=== PATIENT | female | born 1975 | race African-American/Black ===

== ENCOUNTER 2016-12-03 12:30 | Inpatient (IN) | payer BC ==
[2016-12-03 13:43] VITALS: BMI 27.8
--- NOTE | 2016-12-03 16:40 | HP ---
Admission ROS [facility] - [facility] Chief Complaint: I WANT TO GO TO REHAB Allergies/Adverse Reactions: Allergies Allergy/AdvReac Type Severity Reaction Status Date / Time No Known Allergies Allergy Verified 12/03/16 16:38 History of Present Illness: 41 YEARS OLD FEMALE WITH LONG HISTORY OF COCAINE NICOTINE DEPENDENCE, REPORTS HAVING SPINAL SINCE 01/2016 AND DEPRESSION IS ADMITTED TO REHAB Exam Limitations: No Limitations - Ebola screening Have you traveled outside of the country in the last 21 days: No Have you had contact with anyone from an Ebola affected area: No Have you been sick,other than usual withdrawal symptoms: No Do you have a fever: No - Review of Systems Constitutional: Weight Stable EENT: reports: No Symptoms Reported Respiratory: reports: No Symptoms reported Cardiac: reports: No Symptoms Reported GI: reports: No Symptoms Reported : reports: No Symptoms Reported Musculoskeletal: reports: Back Pain, Joint Pain, Muscle Pain, Neck Pain Integumentary: reports: No Symptoms Reported Neuro: reports: No Symptoms reported Endocrine: reports: No Symptoms Reported Hematology: reports: No Symptoms Reported Psychiatric: reports: Judgement Intact, Orientated x3, Depressed Other Systems: Reviewed and Negative Patient History - Patient Medical History Hx Anemia: No Hx Asthma: No Hx Chronic Obstructive Pulmonary Disease (COPD): No Hx Cancer: No Hx Cardiac Disorders: No Hx Congestive Heart Failure: No Hx Hypertension: No Hx Hypercholesterolemia: No Hx Pacemaker: No HX Cerebrovascular Accident: No Hx Seizures: No Hx Dementia: No Hx Diabetes: No Hx Gastrointestinal Disorders: No Hx Liver Disease: No Hx Genitourinary Disorders: No Hx Sexually Transmitted Disorders: No Hx Thyroid Disease: No Hx Human Immunodeficiency Virus (HIV): No Hx Hepatitis C: No Hx Depression: Yes Hx Suicide Attempt: No Hx Bipolar Disorder: No Hx Schizophrenia: No - Patient Surgical History Past Surgical History: No Other Surgical History: MISSCARRAGEX3, 03/2016 - PPD History Previous Implant?: Yes Documented Results: Negative w/o proof Implanted On Prior [facility] Admission?: No PPD to be Administered?: Yes - Reproductive History Patient is a Female of Child Bearing Age (11 -55 yrs old): Yes Last Menstrual Period: 12/03/16 (DEPO1) Patient : No - Smoking Cessation Smoking history: Current every day smoker Have you smoked in the past 12 months: Yes Aproximately how many cigarettes per day: 6 Cigars Per Day: 0 Hx Chewing Tobacco Use: No Initiated information on smoking cessation: Yes 'Breaking Loose' booklet given: 12/03/16 - Substance & Tx. History Hx Alcohol Use: No Hx Substance Use: Yes Substance Use Type: Cocaine Hx Substance Use Treatment: Yes (2006) - Substances Abused Cocaine Route: Inhalation Frequency: 1-3 times last 30 days Amount used: 200$ Age of first use: 19 Date of Last Use: 11/30/16 Family Disease History - Family Disease History Family Disease History: CA: Grandparent Admission Physical Exam [facility] - Vital Signs Vital Signs: Vital Signs - 24 hr 12/03/16 13:40 Temperature 98 F Pulse Rate 78 Respiratory 20 Rate Blood Pressure 132/75 - Physical General Appearance: Yes: No Apparent Distress, Nourished, Appropriately Dressed HEENTM: Yes: Hearing grossly Normal, Normal ENT Inspection, Normocephalic, Normal Voice Respiratory: Yes: Chest Non-Tender, Lungs Clear, Normal Breath Sounds, No Respiratory Distress, No Accessory Muscle Use Neck: Yes: Supple, Trachea in good position Breast: Yes: Breasts Symetrical Cardiology: Yes: Regular Rhythm, Regular Rate, S1, S2 Abdominal: Yes: Normal Bowel Sounds, Non Tender, Soft Genitourinary: Yes: Within Normal Limits Back: Yes: Normal Inspection Extremities: Yes: Normal Inspection, Normal Range of Motion, Non-Tender Neurological: Yes: Fully Oriented, Alert, Motor Strength 5/5, Normal Response, Depressed Affect Integumentary: Yes: Warm Lymphatic: Yes: Within Normal Limits - Diagnostic (1) Cocaine dependence with withdrawal Current Visit: Yes Status: Acute (2) Nicotine dependence Current Visit: Yes Status: Acute Qualifiers: Nicotine product type: cigarettes Substance use status: in withdrawal Qualified Code(s): F17.213 - Nicotine dependence, cigarettes, with withdrawal (3) Chronic back pain Current Visit: Yes Status: Chronic Qualifiers: Back pain location: back pain in unspecified location Back pain laterality: unspecified Qualified Code(s): M54.9 - Dorsalgia, unspecified ; G89.29 - Other chronic pain Comment: PATIENT PREFERS NAPROSYN (4) Depression (emotion) Current Visit: Yes Status: Suspected Qualifiers: Depression Type: dysthymia Qualified Code(s): F34.1 - Dysthymic disorder Cleared for Admission [facility] - Detox or Rehab [facility] Level of Care: Observation Bed Detox Regimen/Protocol: Not Applicable Claeared for Rehab Admission: Yes [facility] Breath Alcohol Content Breath Alcohol Content: 0 Urine Pregancy Test - Result Urine Test Results: Negative- NO Line Present Urine Drug Screen - Results Drug Screen Negative: No Urine Drug Screen Results: ANDERS-Cocaine
[2016-12-03] MEDS ORDERED: guaiFENesin/D-METHORPHAN HB 10 ML UNIT-DOSE CUPS PO PRN (16:50)
[2016-12-03] MEDS ORDERED: ACETAMINOPHEN 325 MG TABLET (FP) PO PRN (16:50)
[2016-12-03] MEDS ORDERED: MAGNESIUM HYDROX 2400MG/30ML ORAL SUSPENSION 30 ML CUP PO PRN (16:50)
[2016-12-03] MEDS ORDERED: P-EPHED 60MG/TRIPROLIDI 2.5MG TABLET PO PRN (16:50)
[2016-12-03] MEDS ORDERED: MAGNESIUM CITRATE 300 ML BOTTLE PO PRN (16:50)
[2016-12-03] MEDS ORDERED: MENTHOL/PHENOL 1 EACH UD MM PRN (16:50)
[2016-12-03] MEDS ORDERED: MAG HYDROX/AL HYDROX/SIMETH 30 ML UNIT-DOSE CUP PO PRN (16:50)
[2016-12-03] MEDS ORDERED: LOPERAMIDE HCL 2 MG CAPSULE PO PRN (16:50)
[2016-12-03] MEDS: hydrOXYzine PAMOATE 50 MG CAPSULE (FP) PO PRN (18:38)
[2016-12-03] MEDS: NAPROXEN 500 MG TABLET (FP) PO PRN (18:38)
[2016-12-03] MEDS: NICOTINE POLACRILEX 2 MG GUM BC PRN (18:41)
--- NOTE | 2016-12-03 19:33 | HP ---
Admission [facility] Allergies/Adverse Reactions: Allergies Allergy/AdvReac Type Severity Reaction Status Date / Time No Known Allergies Allergy Verified 12/03/16 16:38 - Ebola screening Have you traveled outside of the country in the last 21 days: No Have you had contact with anyone from an Ebola affected area: No Have you been sick,other than usual withdrawal symptoms: No Do you have a fever: No Patient History - Patient Medical History Hx Anemia: No Hx Asthma: No Hx Chronic Obstructive Pulmonary Disease (COPD): No Hx Cancer: No Hx Cardiac Disorders: No Hx Congestive Heart Failure: No Hx Hypertension: No Hx Hypercholesterolemia: No Hx Pacemaker: No HX Cerebrovascular Accident: No Hx Seizures: No Hx Dementia: No Hx Diabetes: No Hx Gastrointestinal Disorders: No Hx Liver Disease: No Hx Genitourinary Disorders: No Hx Sexually Transmitted Disorders: No Hx Renal Disease (ESRD): No Hx Thyroid Disease: No Hx Human Immunodeficiency Virus (HIV): No Hx Hepatitis C: No Hx Depression: Yes Hx Suicide Attempt: No Hx Bipolar Disorder: No Hx Schizophrenia: No - Patient Surgical History Past Surgical History: No Hx Neurologic Surgery: No Hx Cataract Extraction: No Hx Cardiac Surgery: No Hx Lung Surgery: No Hx Breast Surgery: No Hx Breast Biopsy: No Hx Abdominal Surgery: No Hx Appendectomy: No Hx Cholecystectomy: No Hx Genitourinary Surgery: No Hx Section: No Hx Orthopedic Surgery: No Other Surgical History: MISSCARRAGEX3, 03/2016 Anesthesia Reaction: No - PPD History Previous Implant?: Yes Documented Results: Negative w/o proof Implanted On Prior [facility] Admission?: No Date: 12/05/16 - Reproductive History Last Menstrual Period: 12/03/16 (DEPO1) Patient : No - Smoking Cessation Smoking history: Current every day smoker Have you smoked in the past 12 months: Yes Aproximately how many cigarettes per day: 6 Cigars Per Day: 0 Hx Chewing Tobacco Use: No Initiated information on smoking cessation: Yes 'Breaking Loose' booklet given: 12/03/16 - Substances Abused Cocaine Route: Inhalation Frequency: 1-3 times last 30 days Amount used: 200$ Age of first use: 19 Date of Last Use: 11/30/16 Family Disease History - Family Disease History Family Disease History: CA: Grandparent Admission Physical Exam S - Vital Signs Vital Signs: Vital Signs - 24 hr 12/03/16 13:40 Temperature 98 F Pulse Rate 78 Respiratory 20 Rate Blood Pressure 132/75 - Diagnostic (1) Cocaine dependence with withdrawal Current Visit: Yes Status: Acute (2) Nicotine dependence Current Visit: Yes Status: Acute Qualifiers: Nicotine product type: cigarettes Substance use status: in withdrawal Qualified Code(s): F17.213 - Nicotine dependence, cigarettes, with withdrawal (3) Chronic back pain Current Visit: Yes Status: Chronic Qualifiers: Back pain location: back pain in unspecified location Back pain laterality: unspecified Qualified Code(s): M54.9 - Dorsalgia, unspecified ; G89.29 - Other chronic pain Comment: PATIENT PREFERS NAPROSYN (4) Depression (emotion) Current Visit: Yes Status: Suspected Qualifiers: Depression Type: dysthymia Qualified Code(s): F34.1 - Dysthymic disorder [facility] Breath Alcohol Content Breath Alcohol Content: 0 Urine Pregancy Test - Result Urine Test Results: Negative- NO Line Present Urine Drug Screen - Results Drug Screen Negative: No Urine Drug Screen Results: ANDERS-Cocaine Inpatient Rehab Admission - Initial Determination Are CD services needed?: Yes Free of communicable disease: Yes Not in need of hospitalization: Yes - Rehab Admission Criteria Previous failed treatment: Yes Poor recovery environment: Yes Comorbidities: Yes Lacks judgement: No Patient is meeting Inpatient Rehab admission criteria:: Yes
[2016-12-03] MEDS: THIAMINE HCL 100 MG TABLET (FP) PO SCH (22:31)
[2016-12-04 01:30] LABS: URINE APPEARANCE SLCLOUDY; URINE BILIRUBIN NEGATIVE (NEGATIVE); URINE BLOOD NEGATIVE (NEGATIVE); URINE COLOR YELLOW; URINE GLUCOSE (UA) NEGATIVE (NEGATIVE); URINE KETONE NEGATIVE (NEGATIVE); URINE LEUK ESTERASE NEGATIVE (NEGATIVE); URINE NITRITE NEGATIVE (NEGATIVE); URINE PROTEIN NEGATIVE (NEGATIVE)
[2016-12-04] MEDS: hydrOXYzine PAMOATE 50 MG CAPSULE (FP) PO PRN ×2 (08:00→19:55)
[2016-12-04] MEDS: NAPROXEN 500 MG TABLET (FP) PO PRN ×2 (08:00→19:55)
[2016-12-04] MEDS: NICOTINE POLACRILEX 2 MG GUM BC PRN (08:01)
--- NOTE | 2016-12-04 09:48 | EKG ---
Test Reason : Blood Pressure : / mmHG Vent. Rate : 077 BPM Atrial Rate : 077 BPM P-R Int : 144 ms QRS Dur : 080 ms QT Int : 408 ms P-R-T Axes : 059 037 051 degrees QTc Int : 461 ms NORMAL SINUS RHYTHM WITH SINUS ARRHYTHMIA NORMAL ECG NO PREVIOUS ECGS AVAILABLE Confirmed by JEREMIAS MCCOY MD ([id number]) on 12/04/2016 9:48:02 AM Referred By: Confirmed By:JEREMIAS MCCOY MD
[2016-12-04 10:07] LABS: MCHC 32.7 g/dl (32.0-36.0); MEAN CELL VOLUME 94.9 fl (80-96); MEAN PLT VOLUME 8.4 fl (7.5-11.1); PLATELET COUNT 252 K/MM3 (134-434); WHITE BLOOD COUNT 3.9 K/mm3 (4.0-10.0)
[2016-12-04] MEDS: NICOTINE 14 MG/24 HOURS TOPICAL PATCH TD SCH (10:58)
[2016-12-04] MEDS: PRENATAL VITAMINS W/ FOLIC ACID TABLET (FP) PO SCH (10:58)
[2016-12-04 11:10] LABS: BILIRUBIN,TOTAL 0.2 mg/dL (0.2-1.0); CALCIUM 8.7 mg/dL (8.5-10.1)
[2016-12-04 11:17] LABS: ALBUMIN 3.4 g/dl (3.4-5.0); ALK PHOS 61 U/L (45-117); ANION GAP 8 (8-16); CO2 24 mmol/L (21-32); CREATININE 0.6 mg/dL (0.55-1.02); GLUCOSE,RANDOM 79 mg/dL (74-106); SGOT/AST 13 U/L (15-37); SGPT/ALT 16 U/L (12-78); TOT PROT 6.2 g/dl (6.4-8.2)
--- NOTE | 2016-12-04 11:28 | HP ---
Psychiatrist Admission - Data Date of interview: 12/04/16 Admission source: [facility] Identifying data: This is the first admission to [address] [place] [address] for this 41 years old AA female,mother of 2 ,unemployed supported by . Medical History: Significant for Low back pain. Psychiatric History: Patient reports her first contact with psychiatrist was about 7 years ago due to first nervious breakdown.Patient admitted herself to [facility] to address anxiety,depression provoked by drug abuse.Patient was dx with Mood disorder,she reports 2-3 more psychiatric admissions.No current psychiatric follow up,stopped her psychotropic medications a few months ago but is willing to restart Zyprexa 5 mg po hs and Trazodone 100 mg po hs for insomnia,mood instability. Physical/Sexual Abuse/Trauma History: denies Vital Signs: Vital Signs - 24 hr 12/03/16 12/04/16 12/04/16 13:40 00:30 07:51 Temperature 98 F 98.0 F Pulse Rate 78 98 H Respiratory 20 18 18 Rate Blood Pressure 132/75 118/82 Allergies/Adverse Reactions: Allergies Allergy/AdvReac Type Severity Reaction Status Date / Time No Known Allergies Allergy Verified 12/03/16 16:38 Date of last physical exam: 12/03/16 Concur with the findings of this exam: Yes - Substance Abuse/Tx History Hx Alcohol Use: Yes (drinking since 33 years old) Hx Substance Use: Yes (reports using cocaine since 15 yo,relapsed again 6 months ago) Substance Use Type: Cocaine Hx Substance Use Treatment: Yes Mental Status Exam - Mental Status Exam Alert and Oriented to: Time, Place, Person Cognitive Function: Grossly Intact Patient Appearance: Unkempt Mood: Sad Affect: Mood Congruent Patient Behavior: Cooperative Speech Pattern: Clear Voice Loudness: Normal Thought Process: Goal Oriented Thought Disorder: Not Present Hallucinations: Denies Suicidal Ideation: Denies Homicidal Ideation: Denies Insight/Judgement: Fair Sleep: Fair Appetite: Good Muscle strength/Tone: Normal Gait/Station: Normal Psychiatric Findings - Problem List ([place] 1, 2,3) (1) Nicotine dependence Current Visit: Yes Status: Chronic Qualifiers: Nicotine product type: cigarettes Substance use status: in withdrawal Qualified Code(s): F17.213 - Nicotine dependence, cigarettes, with withdrawal (2) Cocaine dependence Current Visit: Yes Status: Chronic (3) Substance induced mood disorder Current Visit: Yes Status: Chronic - Initial Treatment Plan Initial Treatment Plan: Restart Zyprexa 5 mg po hs and Trazodone 100 mg po hs.Will monitor progress.
[2016-12-04] MEDS: THIAMINE HCL 100 MG TABLET (FP) PO SCH (22:19)
[2016-12-05] MEDS: hydrOXYzine PAMOATE 50 MG CAPSULE (FP) PO PRN ×2 (10:56→20:22)
[2016-12-05] MEDS: PRENATAL VITAMINS W/ FOLIC ACID TABLET (FP) PO SCH (10:56)
[2016-12-05] MEDS: NICOTINE 14 MG/24 HOURS TOPICAL PATCH TD SCH (10:57)
[2016-12-05] MEDS: NAPROXEN 500 MG TABLET (FP) PO PRN ×2 (11:00→20:22)
[2016-12-05] MEDS: THIAMINE HCL 100 MG TABLET (FP) PO SCH (22:11)
[2016-12-06] MEDS: hydrOXYzine PAMOATE 50 MG CAPSULE (FP) PO PRN ×2 (08:44→15:49)
[2016-12-06] MEDS: NAPROXEN 500 MG TABLET (FP) PO PRN (08:46)
--- NOTE | 2016-12-06 09:58 | EKG ---
Test Reason : Blood Pressure : / mmHG Vent. Rate : 064 BPM Atrial Rate : 064 BPM P-R Int : 180 ms QRS Dur : 092 ms QT Int : 418 ms P-R-T Axes : 052 066 022 degrees QTc Int : 431 ms NORMAL SINUS RHYTHM MODERATE VOLTAGE CRITERIA FOR LVH, MAY BE NORMAL VARIANT INCOMPLETE RBBB NONSPECIFIC ST ABNORMALITY Confirmed by KHLOE SALOMON MD ([id number]) on 12/06/2016 9:58:12 AM Referred By: Confirmed By:KHLOE SALOMON MD
[2016-12-06] MEDS: PRENATAL VITAMINS W/ FOLIC ACID TABLET (FP) PO SCH (10:59)
[2016-12-06] MEDS: NICOTINE 14 MG/24 HOURS TOPICAL PATCH TD SCH (10:59)
[2016-12-06] MEDS: CYCLOBENZAPRINE HCL 5 MG TABLET PO SCH ×2 (15:55→21:55)
[2016-12-06] MEDS: THIAMINE HCL 100 MG TABLET (FP) PO SCH (21:51)
[2016-12-06] MEDS: diphenhydrAMINE HCL 50 MG CAPSULE PO PRN (21:51)
[2016-12-06] MEDS: traZODone HCL 100 MG TABLET (FP) PO SCH (21:51)
[2016-12-06] MEDS: OLANZapine 5 MG TABLET PO SCH (21:51)
[2016-12-07] MEDS ORDERED: PT OWN MED DRAWER 7, Y5N ONE (00:02)
[2016-12-07] MEDS: CYCLOBENZAPRINE HCL 5 MG TABLET PO SCH ×3 (08:17→21:43)
[2016-12-07] MEDS: NICOTINE 14 MG/24 HOURS TOPICAL PATCH TD SCH (10:28)
[2016-12-07] MEDS: NAPROXEN 500 MG TABLET (FP) PO PRN (10:29)
[2016-12-07] MEDS: PRENATAL VITAMINS W/ FOLIC ACID TABLET (FP) PO SCH (10:30)
[2016-12-07] MEDS: hydrOXYzine PAMOATE 50 MG CAPSULE (FP) PO PRN ×2 (14:10→21:43)
[2016-12-07] MEDS: traZODone HCL 100 MG TABLET (FP) PO SCH (21:43)
[2016-12-07] MEDS: OLANZapine 5 MG TABLET PO SCH (21:43)
[2016-12-07] MEDS: THIAMINE HCL 100 MG TABLET (FP) PO SCH (21:43)
[2016-12-08] MEDS: CYCLOBENZAPRINE HCL 5 MG TABLET PO SCH ×3 (06:49→21:51)
[2016-12-08] MEDS: PRENATAL VITAMINS W/ FOLIC ACID TABLET (FP) PO SCH (10:52)
[2016-12-08] MEDS: NICOTINE 14 MG/24 HOURS TOPICAL PATCH TD SCH (10:52)
[2016-12-08] MEDS: hydrOXYzine PAMOATE 50 MG CAPSULE (FP) PO PRN (10:54)
[2016-12-08] MEDS: NAPROXEN 500 MG TABLET (FP) PO PRN (18:10)
[2016-12-08] MEDS ORDERED: PT OWN MED DRAWER 7, Y5N ONE (19:40)
[2016-12-08] MEDS: THIAMINE HCL 100 MG TABLET (FP) PO SCH (21:51)
[2016-12-08] MEDS: diphenhydrAMINE HCL 50 MG CAPSULE PO PRN (21:51)
[2016-12-08] MEDS: traZODone HCL 100 MG TABLET (FP) PO SCH (21:51)
[2016-12-08] MEDS: OLANZapine 5 MG TABLET PO SCH (21:51)
[2016-12-09] MEDS: CYCLOBENZAPRINE HCL 5 MG TABLET PO SCH (06:42)
[2016-12-09 07:18] VITALS: BP 112/71; PULSE 92; TEMP 98.2
--- NOTE | 2016-12-09 09:49 | PN ---
Psychiatric Progress Note Vital Signs: Vital Signs Period Temp Pulse Resp BP Sys/Soto Pulse Ox Last 24 Hr 98.2 F 92 18-18 112/71 Date of Session: 12/09/16 Chief Complaint:: Discharge visit HPI: Patient addressed Cocaine dependence comorbid with Substance induced mood disorder. ROS: Significant for Low back pain. Current Medications: Active Medications Generic Name Dose Route Start Last Admin Trade Name Freq PRN Reason Stop Dose Admin Acetaminophen 650 mg 12/03/16 16:50 Tylenol - PO Q4H PRN PAIN Al Hydroxide/Mg Hydroxide 30 ml 12/03/16 16:50 Mylanta Oral Suspension - PO Q6H PRN DYSPEPSIA Cyclobenzaprine HCl 5 mg 12/06/16 15:45 12/09/16 06:42 Cyclobenzaprine Hcl PO 5 mg TID HENNY Administration Diphenhydramine HCl 50 mg 12/03/16 16:50 12/08/16 21:51 Benadryl - PO 50 mg HSMR1 PRN Administration INSOMNIA Eucalyptus/Menthol/Phenol/Sorbitol 1 each 12/03/16 16:50 Cepastat Lozenge - MM Q4H PRN SORE THROAT Guaifenesin 10 ml 12/03/16 16:50 Robitussin Dm - PO Q6H PRN COUGH Hydroxyzine Pamoate 50 mg 12/03/16 16:50 12/08/16 10:54 Vistaril - PO 50 mg Q4H PRN Administration AGITATION Loperamide HCl 4 mg 12/03/16 16:50 Imodium - PO Q6H PRN DIARRHEA Magnesium Citrate 300 ml 12/03/16 16:50 Citroma - PO Q48H PRN CONSTIPATION Magnesium Hydroxide 30 ml 12/03/16 16:50 Milk Of Magnesia - PO DAILY PRN CONSTIPATION Naproxen 500 mg 12/03/16 16:51 12/08/16 18:10 Naprosyn - PO 500 mg BID PRN Administration BACK PAIN Nicotine 14 mg 12/04/16 10:00 12/08/16 10:52 Nicoderm Patch - TD 14 mg DAILY HENNY Administration Nicotine Polacrilex 2 mg 12/03/16 16:50 12/04/16 08:01 Nicorette Gum - BC 2 mg Q2H PRN Administration NICOTINE REPLACEMENT RX Olanzapine 5 mg 12/06/16 22:00 12/08/16 21:51 Zyprexa - PO 5 mg HS HENNY Administration Multivit/Folic Acid/Iron 1 tab 12/04/16 10:00 12/08/16 10:52 Vitamins (Sjr) - PO 1 tab DAILY HENNY Administration Pseudoephedrine/Triprolidine 1 combo 12/03/16 16:50 Actifed - PO TID PRN NASAL CONGESTION Thiamine HCl 100 mg 12/03/16 22:00 12/08/16 21:51 Vitamin B1 - PO 100 mg HS HENNY Administration Trazodone HCl 100 mg 12/06/16 22:00 12/08/16 21:51 Desyrel - PO 100 mg HS HENNY Administration Current Side Effect: No Lab tests ordered: No Lab tests reviewed: Yes Provider note:: Patient completed this proram today.She has met her treatment goals and will continue to address he issues on outpatient basis at [facility].Patient reports finding Trazodone 100 mg po hs and Zyprexa 5 mg po hs help to cope with mood swings,anxiety and insomnia.scripts for 30 days supply provided. Therapy provided focusing on support and coping skills utilization to maintain recovery. Patient is stable for discharge today. Total face to face time:: 30 Mental Status Exam - Mental Status Exam Alert and Oriented to: Time, Place, Person Cognitive Function: Grossly Intact Patient Appearance: Well Groomed Mood: Euthymic Affect: Mood Congruent Patient Behavior: Cooperative Speech Pattern: Clear Voice Loudness: Normal Thought Process: Goal Oriented Thought Disorder: Not Present Hallucinations: Denies Suicidal Ideation: Denies Homicidal Ideation: Denies Insight/Judgement: Fair Sleep: Fair Appetite: Fair Muscle strength/Tone: Normal Gait/Station: Normal Psychiatric Treatment Plan - Problem List (1) Nicotine dependence Current Visit: Yes Qualifiers: Nicotine product type: cigarettes Substance use status: in withdrawal Qualified Code(s): F17.213 - Nicotine dependence, cigarettes, with withdrawal; F17.213 - Nicotine dependence, cigarettes, with withdrawal (2) Cocaine dependence Current Visit: Yes (3) Substance induced mood disorder Current Visit: Yes
[2016-12-09] MEDS: PRENATAL VITAMINS W/ FOLIC ACID TABLET (FP) PO SCH (10:50)
[2016-12-09] MEDS: NICOTINE 14 MG/24 HOURS TOPICAL PATCH TD SCH (10:50)
== END 2016-12-09 11:05 | disposition home or self-care (01) | DRG 772 ==
LOC: YASAS 12:30 → Y3E 17:15
PROVIDERS: ADMIT Psychiatry & Neurology Psychiatry; ATTEND Psychiatry & Neurology Psychiatry
PROC: HZ42ZZZ Group Counseling for Substance Abuse Treatment, Cognitive-Behavioral (ICD-10-PCS; principal; 2016-12-03)
DX: F14.20 Cocaine dependence, uncomplicated (principal); F17.213 Nicotine dependence, cigarettes, with withdrawal; F19.24 Other psychoactive substance dependence with psychoactive substance-induced mood disorder; M54.9 Dorsalgia, unspecified; G89.29 Other chronic pain
CPT/HCPCS: 36415; 80053; 81003; 85027; 86593; 86780; 86803; 93005; 93010

== ENCOUNTER 2021-04-26 20:41 | Inpatient (IN) | payer BC ==
[2021-04-26 22:12] VITALS: BMI 29.5
[2021-04-26] MEDS ORDERED: ACETAMINOPHEN 325 MG TABLET (FP) PO PRN ×2 (23:23)
[2021-04-26] MEDS ORDERED: ONDANSETRON *ODT* 4 MG TABLET SL PRN (23:23)
[2021-04-26] MEDS ORDERED: LOPERAMIDE HCL 2 MG CAPSULE PO PRN (23:23)
[2021-04-26] MEDS ORDERED: MAGNESIUM HYDROX 2400MG/30ML ORAL SUSPENSION 30 ML CUP PO PRN (23:23)
[2021-04-26] MEDS ORDERED: MAGNESIUM CITRATE 300 ML BOTTLE PO PRN (23:23)
[2021-04-26] MEDS ORDERED: MENTHOL/PHENOL 1 EACH UD MM PRN (23:23)
[2021-04-26] MEDS ORDERED: BISMUTH SUBSALICYLATE 524 MG/30 ML PO PRN (23:23)
[2021-04-26] MEDS ORDERED: MAG HYDROX/AL HYDROX/SIMETH 30 ML UNIT-DOSE CUP PO PRN (23:23)
[2021-04-26] MEDS ORDERED: NICOTINE POLACRILEX 2 MG GUM BUC PRN (23:23)
[2021-04-27] MEDS: diazePAM 5 MG TABLET PO SCH ×4 (04:01→22:39)
[2021-04-27] MEDS: METHOCARBAMOL 500 MG TABLET PO PRN ×2 (04:04→19:56)
[2021-04-27] MEDS: IBUPROFEN 400 MG TABLET (FP) PO PRN ×2 (04:04→22:41)
[2021-04-27] MEDS: hydrOXYzine PAMOATE 25 MG CAPSULE (FP) PO PRN ×3 (04:04→22:39)
[2021-04-27] MEDS ORDERED: diazePAM 5 MG TABLET PO SCH (05:00)
[2021-04-27] MEDS: PRENATAL VITAMINS W/ FOLIC ACID TABLET (FP) PO SCH (10:54)
[2021-04-27] MEDS: MELATONIN 5 MG TABLETS PO PRN (22:39)
[2021-04-27] MEDS: THIAMINE HCL 100 MG TABLET (FP) PO SCH (22:39)
[2021-04-28] MEDS: diazePAM 5 MG TABLET PO SCH ×3 (06:42→22:36)
[2021-04-28] MEDS: METHOCARBAMOL 500 MG TABLET PO PRN ×2 (07:50→17:49)
[2021-04-28] MEDS: diazePAM 5 MG TABLET PO PRN ×2 (07:50→17:50)
[2021-04-28] MEDS: hydrOXYzine PAMOATE 25 MG CAPSULE (FP) PO PRN ×3 (07:50→22:38)
[2021-04-28 11:37] LABS: HEMATOCRIT 31.6 % (32.4-45.2); HEMOGLOBIN 10.6 GM/dL (10.7-15.3); MCH 31.5 pg (25.7-33.7); MCHC 33.6 g/dl (32.0-36.0); MEAN CELL VOLUME 93.9 fl (80-96); MEAN PLT VOLUME 7.2 fl (7.5-11.1); PLATELET COUNT 300 10^3/uL (134-434); RBC 3.37 M/mm3 (3.60-5.2); RDW 13.8 % (11.6-15.6); WHITE BLOOD COUNT 4.6 K/mm3 (4.0-10.0)
[2021-04-28] MEDS: PRENATAL VITAMINS W/ FOLIC ACID TABLET (FP) PO SCH (11:42)
[2021-04-28 11:50] LABS: CALCIUM 9.4 mg/dL (8.5-10.1)
[2021-04-28 11:51] LABS: ALBUMIN 3.2 g/dl (3.4-5.0); BLOOD UREA NITROGEN 11.3 mg/dL (7-18)
[2021-04-28 11:53] LABS: CREATININE 0.6 mg/dL (0.55-1.3)
[2021-04-28 11:55] LABS: BILIRUBIN,TOTAL 0.3 mg/dL (0.2-1); TOT PROT 6.5 g/dl (6.4-8.2)
[2021-04-28 15:05] LABS: ANISOCYTOSIS 0; MACROCYTOSIS 0
[2021-04-28] MEDS: THIAMINE HCL 100 MG TABLET (FP) PO SCH (22:36)
[2021-04-28] MEDS: traZODone HCL 50 MG TABLET (FP) PO SCH (22:36)
[2021-04-28] MEDS: OLANZapine 5 MG TABLET PO SCH (22:36)
[2021-04-29] MEDS: diazePAM 5 MG TABLET PO SCH ×2 (06:38→17:29)
[2021-04-29] MEDS: PRENATAL VITAMINS W/ FOLIC ACID TABLET (FP) PO SCH (11:08)
[2021-04-29] MEDS: THIAMINE HCL 100 MG TABLET (FP) PO SCH (22:18)
[2021-04-29] MEDS: traZODone HCL 50 MG TABLET (FP) PO SCH (22:18)
[2021-04-29] MEDS: MELATONIN 5 MG TABLETS PO PRN (22:18)
[2021-04-29] MEDS: OLANZapine 5 MG TABLET PO SCH (22:18)
[2021-04-29] MEDS: diazePAM 5 MG TABLET PO PRN (22:19)
[2021-04-30] MEDS ORDERED: diazePAM 5 MG TABLET PO ONE (06:00)
[2021-04-30] MEDS: PRENATAL VITAMINS W/ FOLIC ACID TABLET (FP) PO SCH (10:26)
[2021-04-30 13:22] VITALS: BP 105/65; PULSE 95; TEMP 96.8
== END 2021-04-30 15:48 | disposition home or self-care (01) | DRG 774 ==
LOC: YASAS 20:41 → Y3N 04-27 01:45
PROVIDERS: ADMIT Allergy & Immunology; ATTEND Allergy & Immunology
PROC: HZ2ZZZZ Detoxification Services for Substance Abuse Treatment (ICD-10-PCS; principal; 2021-04-27)
DX: F10.230 Alcohol dependence with withdrawal, uncomplicated (principal); F14.20 Cocaine dependence, uncomplicated; F12.20 Cannabis dependence, uncomplicated; F17.210 Nicotine dependence, cigarettes, uncomplicated; F19.24 Other psychoactive substance dependence with psychoactive substance-induced mood disorder; F31.9 Bipolar disorder, unspecified; F34.1 Dysthymic disorder; A53.0 Latent syphilis, unspecified as early or late; Z86.19 Personal history of other infectious and parasitic diseases; Z88.0 Allergy status to penicillin
CPT/HCPCS: 36415; 80053; 85025; 86593; 86780; 87811; C9803; U0003; U0005

== ENCOUNTER 2021-06-16 21:48 | Inpatient (IN) | payer BC ==
[2021-06-16 23:10] VITALS: BMI 28.8
[2021-06-16] MEDS ORDERED: MAGNESIUM HYDROX 2400MG/30ML ORAL SUSPENSION 30 ML CUP PO PRN (23:23)
[2021-06-16] MEDS ORDERED: ACETAMINOPHEN 325 MG TABLET (FP) PO PRN (23:23)
[2021-06-16] MEDS ORDERED: ONDANSETRON *ODT* 4 MG TABLET SL PRN (23:23)
[2021-06-16] MEDS ORDERED: BENZOCAINE/MENTHOL (CHLORASEPTIC ) LOZENGE MM PRN (23:23)
[2021-06-16] MEDS ORDERED: MAG HYDROX/AL HYDROX/SIMETH 30 ML UNIT-DOSE CUP PO PRN (23:23)
[2021-06-16] MEDS ORDERED: LOPERAMIDE HCL 2 MG CAPSULE PO PRN (23:23)
[2021-06-16] MEDS ORDERED: MAGNESIUM CITRATE 300 ML BOTTLE PO PRN (23:23)
[2021-06-16] MEDS ORDERED: NICOTINE 10 MG CARTRIDGE (INHALER) IH PRN (23:23)
[2021-06-16] MEDS ORDERED: BISMUTH SUBSALICYLATE 524 MG/30 ML PO PRN (23:23)
[2021-06-16] MEDS ORDERED: DICYCLOMINE HCL 10 MG CAPSULE PO PRN (23:23)
[2021-06-16] MEDS ORDERED: IBUPROFEN 400 MG TABLET (FP) PO PRN (23:23)
[2021-06-17] MEDS ORDERED: chlordiazePOXIDE HCL 25 MG CAPSULE PO PRN (00:02)
[2021-06-17] MEDS: ACETAMINOPHEN 325 MG TABLET (FP) PO PRN (00:30)
[2021-06-17] MEDS: chlordiazePOXIDE HCL 25 MG CAPSULE PO SCH ×2 (07:14→11:08)
[2021-06-17] MEDS: NICOTINE 21 MG/24 HOURS TOPICAL PATCH TD SCH (11:07)
[2021-06-17] MEDS: PRENATAL VITAMINS W/ FOLIC ACID TABLET (FP) PO SCH (11:08)
[2021-06-17 12:52] LABS: HEMATOCRIT 34.5 % (32.4-45.2); HEMOGLOBIN 11.6 GM/dL (10.7-15.3); MCH 31.7 pg (25.7-33.7); MCHC 33.6 g/dl (32.0-36.0); MEAN CELL VOLUME 94.3 fl (80-96); MEAN PLT VOLUME 7.8 fl (7.5-11.1); PLATELET COUNT 350 10^3/uL (134-434); RBC 3.66 M/mm3 (3.60-5.2); RDW 14.1 % (11.6-15.6); WHITE BLOOD COUNT 7.2 K/mm3 (4.0-10.0)
[2021-06-17 13:04] LABS: CALCIUM 8.8 mg/dL (8.5-10.1)
[2021-06-17 13:06] LABS: ALBUMIN 3.4 g/dl (3.4-5.0); BLOOD UREA NITROGEN 13.5 mg/dL (7-18)
[2021-06-17 13:10] LABS: BILIRUBIN,TOTAL 0.7 mg/dL (0.2-1); CREATININE 0.9 mg/dL (0.55-1.3); TOT PROT 7.4 g/dl (6.4-8.2)
[2021-06-17] MEDS: METHOCARBAMOL 500 MG TABLET PO PRN (17:57)
[2021-06-17] MEDS: diazePAM 5 MG TABLET PO SCH ×2 (17:57→22:32)
[2021-06-17] MEDS: diazePAM 5 MG TABLET PO PRN (20:52)
[2021-06-17] MEDS: OLANZapine 5 MG TABLET PO SCH (22:32)
[2021-06-17] MEDS: THIAMINE HCL 100 MG TABLET (FP) PO SCH (22:32)
[2021-06-17] MEDS: MELATONIN 5 MG TABLETS PO SCH (22:32)
[2021-06-18] MEDS ORDERED: chlordiazePOXIDE HCL 25 MG CAPSULE PO SCH (05:00)
[2021-06-18] MEDS: diazePAM 5 MG TABLET PO SCH ×4 (07:36→22:10)
[2021-06-18] MEDS: METHOCARBAMOL 500 MG TABLET PO PRN ×2 (08:16→15:40)
[2021-06-18] MEDS: diazePAM 5 MG TABLET PO PRN ×2 (08:17→15:39)
[2021-06-18] MEDS: NICOTINE 21 MG/24 HOURS TOPICAL PATCH TD SCH (11:08)
[2021-06-18] MEDS: PRENATAL VITAMINS W/ FOLIC ACID TABLET (FP) PO SCH (11:09)
[2021-06-18] MEDS: ACETAMINOPHEN 325 MG TABLET (FP) PO PRN (17:52)
[2021-06-18] MEDS: MELATONIN 5 MG TABLETS PO SCH (22:10)
[2021-06-18] MEDS: THIAMINE HCL 100 MG TABLET (FP) PO SCH (22:10)
[2021-06-18] MEDS: OLANZapine 5 MG TABLET PO SCH (22:12)
[2021-06-19] MEDS ORDERED: chlordiazePOXIDE HCL 10 MG CAPSULE PO PRN
[2021-06-19] MEDS ORDERED: chlordiazePOXIDE HCL 10 MG CAPSULE PO SCH (05:00)
[2021-06-19] MEDS: METHOCARBAMOL 500 MG TABLET PO PRN ×2 (07:17→19:49)
[2021-06-19] MEDS: diazePAM 5 MG TABLET PO SCH ×3 (07:19→22:19)
[2021-06-19] MEDS: NICOTINE 21 MG/24 HOURS TOPICAL PATCH TD SCH (10:55)
[2021-06-19] MEDS: PRENATAL VITAMINS W/ FOLIC ACID TABLET (FP) PO SCH (10:55)
[2021-06-19] MEDS: diazePAM 5 MG TABLET PO PRN ×2 (12:31→17:02)
[2021-06-19] MEDS: OLANZapine 5 MG TABLET PO SCH (22:19)
[2021-06-19] MEDS: MELATONIN 5 MG TABLETS PO SCH (22:19)
[2021-06-19] MEDS: THIAMINE HCL 100 MG TABLET (FP) PO SCH (22:19)
[2021-06-20] MEDS: METHOCARBAMOL 500 MG TABLET PO PRN (01:07)
[2021-06-20] MEDS: ACETAMINOPHEN 325 MG TABLET (FP) PO PRN (01:08)
[2021-06-20] MEDS: diazePAM 5 MG TABLET PO PRN (01:10)
[2021-06-20] MEDS ORDERED: chlordiazePOXIDE HCL 10 MG CAPSULE PO SCH (05:00)
[2021-06-20] MEDS ORDERED: diazePAM 5 MG TABLET PO SCH (06:00)
[2021-06-20 08:46] VITALS: BP 108/68; PULSE 92; TEMP 7.9
[2021-06-20] MEDS: PRENATAL VITAMINS W/ FOLIC ACID TABLET (FP) PO SCH (10:46)
[2021-06-20] MEDS: NICOTINE 21 MG/24 HOURS TOPICAL PATCH TD SCH (10:46)
[2021-06-21] MEDS ORDERED: chlordiazePOXIDE HCL 10 MG CAPSULE PO ONE (05:00)
[2021-06-21] MEDS ORDERED: diazePAM 5 MG TABLET PO ONE (06:00)
== END 2021-06-20 13:06 | disposition home or self-care (01) | DRG 774 ==
LOC: YASAS 21:48 → Y3N 06-17 00:13
PROVIDERS: ADMIT Allergy & Immunology; ATTEND Allergy & Immunology
PROC: HZ2ZZZZ Detoxification Services for Substance Abuse Treatment (ICD-10-PCS; principal; 2021-06-17)
DX: F10.230 Alcohol dependence with withdrawal, uncomplicated (principal); F14.20 Cocaine dependence, uncomplicated; F12.20 Cannabis dependence, uncomplicated; F17.210 Nicotine dependence, cigarettes, uncomplicated; F19.24 Other psychoactive substance dependence with psychoactive substance-induced mood disorder; F34.1 Dysthymic disorder; F41.9 Anxiety disorder, unspecified; M54.9 Dorsalgia, unspecified; G89.29 Other chronic pain; Z86.19 Personal history of other infectious and parasitic diseases; Z88.0 Allergy status to penicillin
CPT/HCPCS: 36415; 80053; 81025; 85027; 86593; 86780; 87811; 93005; 93010; C9803-CS; U0003; U0005

== ENCOUNTER 2021-11-26 16:13 | Inpatient (IN) | payer BC ==
[2021-11-26 17:18] VITALS: BMI 25.9
[2021-11-26] MEDS ORDERED: MAGNESIUM HYDROX 2400MG/30ML ORAL SUSPENSION 30 ML CUP PO PRN (17:43)
[2021-11-26] MEDS ORDERED: NICOTINE POLACRILEX 2 MG GUM BUC PRN (17:43)
[2021-11-26] MEDS ORDERED: chlordiazePOXIDE HCL 25 MG CAPSULE PO PRN (17:43)
[2021-11-26] MEDS ORDERED: IBUPROFEN 400 MG TABLET (FP) PO PRN (17:43)
[2021-11-26] MEDS ORDERED: LOPERAMIDE HCL 2 MG CAPSULE PO PRN (17:43)
[2021-11-26] MEDS ORDERED: ONDANSETRON *ODT* 4 MG TABLET SL PRN (17:43)
[2021-11-26] MEDS ORDERED: MAG HYDROX/AL HYDROX/SIMETH 30 ML UNIT-DOSE CUP PO PRN (17:43)
[2021-11-26] MEDS ORDERED: NICOTINE 10 MG CARTRIDGE (INHALER) IH PRN (17:43)
[2021-11-26] MEDS ORDERED: NALOXONE HCL (KLOXXADO) 8 MG SPRAY NS PRN (17:43)
[2021-11-26] MEDS ORDERED: BISMUTH SUBSALICYLATE 524 MG/30 ML PO PRN (17:43)
[2021-11-26] MEDS ORDERED: MAGNESIUM CITRATE 300 ML BOTTLE PO PRN (17:43)
[2021-11-26] MEDS ORDERED: DICYCLOMINE HCL 10 MG CAPSULE PO PRN (17:43)
[2021-11-26] MEDS ORDERED: ACETAMINOPHEN 325 MG TABLET (FP) PO PRN ×2 (17:43)
[2021-11-26] MEDS ORDERED: BENZOCAINE/MENTHOL (CHLORASEPTIC ) LOZENGE MM PRN (17:43)
[2021-11-26] MEDS: chlordiazePOXIDE HCL 25 MG CAPSULE PO SCH ×2 (18:39→22:31)
[2021-11-26] MEDS: PRENATAL VITAMINS W/ FOLIC ACID TABLET (FP) PO SCH (18:43)
[2021-11-26] MEDS: hydrOXYzine PAMOATE 25 MG CAPSULE (FP) PO SCH ×2 (18:48→22:31)
[2021-11-26] MEDS: METHOCARBAMOL 500 MG TABLET PO PRN (22:31)
[2021-11-26] MEDS: IBUPROFEN 600 MG TABLET (FP) PO PRN (22:31)
[2021-11-26] MEDS: MELATONIN 5 MG TABLETS PO SCH (22:31)
[2021-11-26] MEDS: THIAMINE HCL 100 MG TABLET (FP) PO SCH (22:31)
[2021-11-27] MEDS: chlordiazePOXIDE HCL 25 MG CAPSULE PO SCH ×4 (06:14→22:25)
[2021-11-27] MEDS: hydrOXYzine PAMOATE 25 MG CAPSULE (FP) PO SCH ×5 (06:14→22:23)
[2021-11-27] MEDS: PRENATAL VITAMINS W/ FOLIC ACID TABLET (FP) PO SCH (10:15)
[2021-11-27] MEDS: METHOCARBAMOL 500 MG TABLET PO PRN ×2 (10:15→22:25)
[2021-11-27 11:23] LABS: HEMATOCRIT 32.6 % (32.4-45.2); HEMOGLOBIN 10.5 GM/dL (10.7-15.3); MCH 30.8 pg (25.7-33.7); MCHC 32.3 g/dl (32.0-36.0); MEAN CELL VOLUME 95.4 fl (80-96); MEAN PLT VOLUME 7.6 fl (7.5-11.1); PLATELET COUNT 368 10^3/uL (134-434); RBC 3.42 M/mm3 (3.60-5.2); RDW 13.7 % (11.6-15.6)
[2021-11-27 11:25] LABS: ALBUMIN 2.9 g/dl (3.4-5.0); BLOOD UREA NITROGEN 12.4 mg/dL (7-18); CALCIUM 8.9 mg/dL (8.5-10.1)
[2021-11-27 11:28] LABS: CREATININE 0.8 mg/dL (0.55-1.3)
[2021-11-27 11:30] LABS: BILIRUBIN,TOTAL 0.2 mg/dL (0.2-1); TOT PROT 6.4 g/dl (6.4-8.2)
[2021-11-27 21:21] VITALS: RESP 18
[2021-11-27] MEDS: THIAMINE HCL 100 MG TABLET (FP) PO SCH (22:23)
[2021-11-27] MEDS: IBUPROFEN 600 MG TABLET (FP) PO PRN (22:25)
[2021-11-27] MEDS: MELATONIN 5 MG TABLETS PO SCH (22:25)
[2021-11-28] MEDS: chlordiazePOXIDE HCL 25 MG CAPSULE PO SCH ×2 (06:33→10:27)
[2021-11-28] MEDS: METHOCARBAMOL 500 MG TABLET PO PRN (06:33)
[2021-11-28] MEDS: hydrOXYzine PAMOATE 25 MG CAPSULE (FP) PO SCH ×3 (06:33→13:22)
[2021-11-28] MEDS ORDERED: FLUTICASONE PROP 0.05% 16 GM NASAL SPRAY NS SCH (10:00)
[2021-11-28] MEDS: PRENATAL VITAMINS W/ FOLIC ACID TABLET (FP) PO SCH (10:26)
[2021-11-28 12:49] VITALS: BP 122/73; PULSE 84; TEMP 98.1
[2021-11-28] MEDS ORDERED: OLANZapine 10 MG TABLET PO SCH (22:00)
[2021-11-28] MEDS ORDERED: traZODone HCL 50 MG TABLET (FP) PO SCH (22:00)
[2021-11-28] MEDS ORDERED: OLANZapine 5 MG TABLET PO SCH (22:00)
[2021-11-29] MEDS ORDERED: chlordiazePOXIDE HCL 10 MG CAPSULE PO PRN
[2021-11-29] MEDS ORDERED: chlordiazePOXIDE HCL 10 MG CAPSULE PO SCH (05:00)
[2021-11-30] MEDS ORDERED: chlordiazePOXIDE HCL 10 MG CAPSULE PO SCH (05:00)
[2021-12-01] MEDS ORDERED: chlordiazePOXIDE HCL 10 MG CAPSULE PO ONE (05:00)
== END 2021-11-28 16:00 | disposition left against medical advice (07) | DRG 770 ==
LOC: YASAS 16:13 → Y3N 18:03
PROVIDERS: ADMIT Allergy & Immunology; ATTEND Surgery
PROC: HZ2ZZZZ Detoxification Services for Substance Abuse Treatment (ICD-10-PCS; principal; 2021-11-26)
DX: F10.230 Alcohol dependence with withdrawal, uncomplicated (principal); F14.20 Cocaine dependence, uncomplicated; F12.20 Cannabis dependence, uncomplicated; F17.210 Nicotine dependence, cigarettes, uncomplicated; F31.9 Bipolar disorder, unspecified; F41.9 Anxiety disorder, unspecified; J45.909 Unspecified asthma, uncomplicated; M54.50 Low back pain, unspecified; G89.29 Other chronic pain; Z86.19 Personal history of other infectious and parasitic diseases; Z88.0 Allergy status to penicillin
CPT/HCPCS: 36415; 80053; 81025; 85027; 86593; 86780; C9803-CS; U0003; U0005

== ENCOUNTER 2022-05-25 20:22 | Inpatient (IN) | payer BC ==
[2022-05-25 21:51] VITALS: BMI 26.1
[2022-05-25] MEDS ORDERED: NALOXONE HCL 0.4 MG/ML VIAL IM PRN (22:24)
[2022-05-25] MEDS ORDERED: DICYCLOMINE HCL 10 MG CAPSULE PO PRN (22:24)
[2022-05-25] MEDS ORDERED: MAG HYDROX/AL HYDROX/SIMETH 30 ML UNIT-DOSE CUP PO PRN (22:24)
[2022-05-25] MEDS ORDERED: METHOCARBAMOL 500 MG TABLET PO PRN (22:24)
[2022-05-25] MEDS ORDERED: NICOTINE POLACRILEX 2 MG GUM BUC PRN (22:24)
[2022-05-25] MEDS ORDERED: BISMUTH SUBSALICYLATE 524 MG/30 ML PO PRN (22:24)
[2022-05-25] MEDS ORDERED: hydrOXYzine PAMOATE 25 MG CAPSULE (FP) PO PRN (22:24)
[2022-05-25] MEDS ORDERED: ACETAMINOPHEN 325 MG TABLET (FP) PO PRN (22:24)
[2022-05-25] MEDS ORDERED: LOPERAMIDE HCL 2 MG CAPSULE PO PRN (22:24)
[2022-05-25] MEDS ORDERED: ONDANSETRON *ODT* 4 MG TABLET SL PRN (22:24)
[2022-05-25] MEDS ORDERED: POLYETHYLENE GLYCOL (HEALTHYLAX) 3350 17 GM PACKET PO PRN (22:24)
[2022-05-25] MEDS ORDERED: NALOXONE HCL (KLOXXADO) 8 MG SPRAY NS PRN (22:24)
[2022-05-25] MEDS ORDERED: guaiFENesin 600 MG TABLET.ER (FP) PO PRN (22:24)
[2022-05-25] MEDS ORDERED: IBUPROFEN 600 MG TABLET (FP) PO PRN (22:24)
[2022-05-25] MEDS ORDERED: MAGNESIUM HYDROX 2400MG/30ML ORAL SUSPENSION 30 ML CUP PO PRN (22:24)
[2022-05-25] MEDS ORDERED: BENZOCAINE/MENTHOL (CHLORASEPTIC ) LOZENGE MM PRN (22:24)
[2022-05-25] MEDS ORDERED: BENZONATATE 200 MG CAPSULE PO PRN (22:24)
[2022-05-25] MEDS ORDERED: IBUPROFEN 400 MG TABLET (FP) PO PRN (22:24)
[2022-05-25] MEDS ORDERED: SODIUM CHLORIDE NASAL SPRAY 44 ML BOTTLE NS PRN (22:28)
[2022-05-25] MEDS ORDERED: IBUPROFEN 600 MG TABLET (FP) PO ONE (22:42)
[2022-05-26] MEDS ORDERED: chlordiazePOXIDE HCL 25 MG CAPSULE PO PRN (09:17)
[2022-05-26] MEDS: NICOTINE 14 MG/24 HOURS TOPICAL PATCH TD SCH (10:45)
[2022-05-26] MEDS: PRENATAL VITAMINS W/ FOLIC ACID TABLET (FP) PO SCH (10:45)
[2022-05-26] MEDS: chlordiazePOXIDE HCL 25 MG CAPSULE PO SCH ×3 (10:46→22:42)
[2022-05-26] MEDS ORDERED: OLANZapine 5 MG TABLET PO ONE (10:56)
[2022-05-26] MEDS ORDERED: OLANZapine 2.5 MG TABLET PO ONE (10:59)
[2022-05-26] MEDS ORDERED: THIAMINE HCL 100 MG TABLET (FP) PO SCH (22:00)
[2022-05-26] MEDS ORDERED: MELATONIN 5 MG TABLETS PO SCH (22:00)
[2022-05-26] MEDS ORDERED: traZODone HCL 50 MG TABLET (FP) PO SCH (22:00)
[2022-05-26] MEDS ORDERED: OLANZapine 5 MG TABLET PO SCH ×2 (22:00)
[2022-05-27] MEDS: chlordiazePOXIDE HCL 25 MG CAPSULE PO SCH ×2 (05:56→10:51)
[2022-05-27 09:52] VITALS: BP 114/77; PULSE 86; RESP 18; TEMP 98.9
[2022-05-27] MEDS ORDERED: OLANZapine 2.5 MG TABLET PO SCH (10:00)
[2022-05-27] MEDS: PRENATAL VITAMINS W/ FOLIC ACID TABLET (FP) PO SCH (10:50)
[2022-05-27] MEDS: NICOTINE 14 MG/24 HOURS TOPICAL PATCH TD SCH (10:50)
[2022-05-27 11:55] LABS: HEMATOCRIT 34.2 % (32.4-45.2); HEMOGLOBIN 11.4 GM/dL (10.7-15.3); MCH 31.3 pg (25.7-33.7); MCHC 33.5 g/dl (32.0-36.0); MEAN CELL VOLUME 93.5 fl (80-96); MEAN PLT VOLUME 7.2 fl (7.5-11.1); PLATELET COUNT 360 10^3/uL (134-434); RBC 3.65 M/mm3 (3.60-5.2); RDW 13.9 % (11.6-15.6); WHITE BLOOD COUNT 3.7 K/mm3 (4.0-10.0)
[2022-05-27 12:24] LABS: ALBUMIN 3.2 g/dl (3.4-5.0); BLOOD UREA NITROGEN 11.6 mg/dL (7-18)
[2022-05-27 12:26] LABS: CALCIUM 9.3 mg/dL (8.5-10.1)
[2022-05-27 12:27] LABS: CREATININE 0.7 mg/dL (0.55-1.3)
[2022-05-27 12:28] LABS: TOT PROT 6.9 g/dl (6.4-8.2)
[2022-05-27 12:29] LABS: BILIRUBIN,TOTAL 0.1 mg/dL (0.2-1)
[2022-05-28] MEDS ORDERED: chlordiazePOXIDE HCL 10 MG CAPSULE PO SCH (05:00)
[2022-05-29] MEDS ORDERED: chlordiazePOXIDE HCL 10 MG CAPSULE PO PRN
[2022-05-29] MEDS ORDERED: chlordiazePOXIDE HCL 10 MG CAPSULE PO SCH (05:00)
[2022-05-30] MEDS ORDERED: chlordiazePOXIDE HCL 10 MG CAPSULE PO ONE (05:00)
== END 2022-05-27 11:29 | disposition home or self-care (01) | DRG 774 ==
LOC: YASAS 20:22 → Y3N 22:45 → UNDOADMIN 22:45
PROVIDERS: ADMIT Allergy & Immunology; ATTEND Surgery
PROC: HZ2ZZZZ Detoxification Services for Substance Abuse Treatment (ICD-10-PCS; principal; 2022-05-25)
DX: F10.230 Alcohol dependence with withdrawal, uncomplicated (principal); F14.20 Cocaine dependence, uncomplicated; F12.20 Cannabis dependence, uncomplicated; F17.210 Nicotine dependence, cigarettes, uncomplicated; F19.282 Other psychoactive substance dependence with psychoactive substance-induced sleep disorder; F19.24 Other psychoactive substance dependence with psychoactive substance-induced mood disorder; F41.9 Anxiety disorder, unspecified; F32.A Depression, unspecified; M54.50 Low back pain, unspecified; G89.29 Other chronic pain; Z86.59 Personal history of other mental and behavioral disorders; Z88.0 Allergy status to penicillin
CPT/HCPCS: 36415; 80053; 81025; 85027; 86593; 86780; 87811; C9803-CS; U0003; U0005

== ENCOUNTER 2023-01-09 21:30 | Inpatient (IN) | payer BC ==
[2023-01-10 01:09] VITALS: BMI 25.7
[2023-01-10] MEDS ORDERED: POLYETHYLENE GLYCOL (HEALTHYLAX) 3350 17 GM PACKET PO PRN (01:43)
[2023-01-10] MEDS ORDERED: NICOTINE POLACRILEX 2 MG GUM BUC PRN (01:43)
[2023-01-10] MEDS ORDERED: BENZOCAINE/MENTHOL (CHLORASEPTIC ) LOZENGE MM PRN (01:43)
[2023-01-10] MEDS ORDERED: MAGNESIUM HYDROX 2400MG/30ML ORAL SUSPENSION 30 ML CUP PO PRN (01:43)
[2023-01-10] MEDS ORDERED: DICYCLOMINE HCL 10 MG CAPSULE PO PRN (01:43)
[2023-01-10] MEDS ORDERED: IBUPROFEN 600 MG TABLET (FP) PO PRN (01:43)
[2023-01-10] MEDS ORDERED: ONDANSETRON *ODT* 4 MG TABLET SL PRN (01:43)
[2023-01-10] MEDS ORDERED: NALOXONE HCL (KLOXXADO) 8 MG SPRAY NS PRN (01:43)
[2023-01-10] MEDS ORDERED: guaiFENesin 600 MG TABLET.ER (FP) PO PRN (01:43)
[2023-01-10] MEDS ORDERED: BENZONATATE 200 MG CAPSULE PO PRN (01:43)
[2023-01-10] MEDS ORDERED: BISMUTH SUBSALICYLATE 524 MG/30 ML PO PRN (01:43)
[2023-01-10] MEDS ORDERED: IBUPROFEN 400 MG TABLET (FP) PO PRN (01:43)
[2023-01-10] MEDS ORDERED: LOPERAMIDE HCL 2 MG CAPSULE PO PRN (01:43)
[2023-01-10] MEDS ORDERED: MAG HYDROX/AL HYDROX/SIMETH 30 ML UNIT-DOSE CUP PO PRN (01:43)
[2023-01-10] MEDS ORDERED: chlordiazePOXIDE HCL 25 MG CAPSULE PO PRN (01:43)
[2023-01-10] MEDS ORDERED: NALOXONE HCL 0.4 MG/ML VIAL IM PRN (01:43)
[2023-01-10] MEDS ORDERED: ACETAMINOPHEN 325 MG TABLET (FP) PO PRN (01:43)
[2023-01-10] MEDS: METHOCARBAMOL 500 MG TABLET PO PRN ×2 (03:50→10:29)
[2023-01-10] MEDS: hydrOXYzine PAMOATE 25 MG CAPSULE (FP) PO PRN ×2 (03:50→22:33)
[2023-01-10] MEDS: chlordiazePOXIDE HCL 25 MG CAPSULE PO SCH ×4 (05:50→22:31)
[2023-01-10] MEDS: PRENATAL VITAMINS W/ FOLIC ACID TABLET (FP) PO SCH (10:30)
[2023-01-10] MEDS: NICOTINE 21 MG/24 HOURS TOPICAL PATCH TD SCH (10:30)
[2023-01-10 10:45] LABS: HEMATOCRIT 29.9 % (32.4-45.2); HEMOGLOBIN 9.5 GM/dL (10.7-15.3); MCH 30.9 pg (25.7-33.7); MCHC 31.9 g/dl (32.0-36.0); MEAN CELL VOLUME 96.8 fl (80-96); MEAN PLT VOLUME 7.5 fl (7.5-11.1); PLATELET COUNT 335 10^3/uL (134-434); RBC 3.09 M/mm3 (3.60-5.2); RDW 14.4 % (11.6-15.6); WHITE BLOOD COUNT 5.4 K/mm3 (4.0-10.0)
[2023-01-10 10:51] LABS: CHLORIDE 108 mmol/L (98-107); POTASSIUM 3.8 mmol/L (3.5-5.1); SODIUM 141 mmol/L (136-145)
[2023-01-10 11:04] LABS: GLUCOSE,RANDOM 90 mg/dL (74-106)
[2023-01-10 11:05] LABS: ALBUMIN 2.9 g/dl (3.4-5.0); ANION GAP 5 mmol/L (4-13); CALCIUM 8.1 mg/dL (8.5-10.1); CO2 28 mmol/L (21-32)
[2023-01-10 11:08] LABS: CREATININE 0.9 mg/dL (0.55-1.3); SGOT/AST 11 U/L (15-37); SGPT/ALT 14 U/L (13-61)
[2023-01-10 11:09] LABS: BILIRUBIN,TOTAL 0.2 mg/dL (0.2-1); TOT PROT 6.3 g/dl (6.4-8.2)
[2023-01-10 11:11] LABS: ALK PHOS 68 U/L (45-117)
[2023-01-10] MEDS: MELATONIN 5 MG TABLETS PO SCH (22:29)
[2023-01-10] MEDS: THIAMINE HCL 100 MG TABLET (FP) PO SCH (22:30)
[2023-01-11] MEDS: chlordiazePOXIDE HCL 25 MG CAPSULE PO SCH ×4 (05:26→23:01)
[2023-01-11] MEDS: NICOTINE 21 MG/24 HOURS TOPICAL PATCH TD SCH (09:35)
[2023-01-11] MEDS: PRENATAL VITAMINS W/ FOLIC ACID TABLET (FP) PO SCH (09:35)
[2023-01-11] MEDS: hydrOXYzine PAMOATE 25 MG CAPSULE (FP) PO PRN (09:38)
[2023-01-11] MEDS: METHOCARBAMOL 500 MG TABLET PO PRN ×2 (09:38→17:43)
[2023-01-11 17:31] VITALS: RESP 18
[2023-01-11] MEDS ORDERED: SODIUM CHLORIDE NASAL SPRAY 44 ML BOTTLE NS PRN (21:45)
[2023-01-11] MEDS: THIAMINE HCL 100 MG TABLET (FP) PO SCH (23:01)
[2023-01-11] MEDS: MELATONIN 5 MG TABLETS PO SCH (23:02)
[2023-01-12] MEDS ORDERED: chlordiazePOXIDE HCL 10 MG CAPSULE PO PRN
[2023-01-12] MEDS: chlordiazePOXIDE HCL 10 MG CAPSULE PO SCH ×2 (05:44→10:39)
[2023-01-12] MEDS ORDERED: ALBUTEROL SO4 HFA INHALER IH PRN (09:24)
[2023-01-12 09:26] VITALS: BP 108/61; PULSE 79; TEMP 96.8
[2023-01-12] MEDS: NICOTINE 21 MG/24 HOURS TOPICAL PATCH TD SCH (09:55)
[2023-01-12] MEDS: PRENATAL VITAMINS W/ FOLIC ACID TABLET (FP) PO SCH (09:55)
[2023-01-13] MEDS ORDERED: chlordiazePOXIDE HCL 10 MG CAPSULE PO SCH (05:00)
[2023-01-14] MEDS ORDERED: chlordiazePOXIDE HCL 10 MG CAPSULE PO ONE (05:00)
== END 2023-01-12 09:58 | disposition left against medical advice (07) | DRG 770 ==
LOC: YASAS 21:30 → Y6N 01-10 03:31
PROVIDERS: ADMIT Allergy & Immunology; ATTEND Psychiatry & Neurology Pain Medicine
PROC: HZ2ZZZZ Detoxification Services for Substance Abuse Treatment (ICD-10-PCS; principal; 2023-01-10)
DX: F10.230 Alcohol dependence with withdrawal, uncomplicated (principal); F14.20 Cocaine dependence, uncomplicated; F12.20 Cannabis dependence, uncomplicated; F17.213 Nicotine dependence, cigarettes, with withdrawal; F20.9 Schizophrenia, unspecified; F41.8 Other specified anxiety disorders; D64.9 Anemia, unspecified; R76.8 Other specified abnormal immunological findings in serum; Z86.19 Personal history of other infectious and parasitic diseases; Z88.0 Allergy status to penicillin
CPT/HCPCS: 36415; 80053; 80307; 81025; 85027; 86593; 86780; 87635